=== PATIENT | male | born 1970 | race Two or more races ===

== ENCOUNTER 2016-09-13 08:29 | Inpatient (IN) | payer OTHER ==
[2016-09-13 10:43] VITALS: BMI 32.8
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
[2016-09-13] MEDS ORDERED: ACETAMINOPHEN 325 MG TABLET (FP) PO PRN (14:08)
[2016-09-13] MEDS ORDERED: MAG HYDROX/AL HYDROX/SIMETH 30 ML UNIT-DOSE CUP PO PRN (14:08)
[2016-09-13] MEDS ORDERED: NICOTINE POLACRILEX 4 MG GUM BUC PRN (14:08)
[2016-09-13] MEDS ORDERED: MENTHOL/PHENOL 1 EACH UD MM PRN (14:08)
[2016-09-13] MEDS ORDERED: MAGNESIUM HYDROX 2400MG/30ML ORAL SUSPENSION 30 ML CUP PO PRN (14:08)
[2016-09-13] MEDS ORDERED: guaiFENesin/D-METHORPHAN HB 10 ML UNIT-DOSE CUPS PO PRN (14:08)
[2016-09-13] MEDS ORDERED: hydrOXYzine PAMOATE 50 MG CAPSULE (FP) PO PRN (14:08)
[2016-09-13] MEDS ORDERED: MAGNESIUM CITRATE 300 ML BOTTLE PO PRN (14:08)
[2016-09-13] MEDS ORDERED: LOPERAMIDE HCL 2 MG CAPSULE PO PRN (14:08)
[2016-09-13] MEDS ORDERED: chlordiazePOXIDE HCL 25 MG CAPSULE PO PRN (14:08)
[2016-09-13] MEDS ORDERED: P-EPHED 60MG/TRIPROLIDI 2.5MG TABLET PO PRN (14:08)
[2016-09-13] MEDS ORDERED: ALBUTEROL SO4 6.7 GM HFA INHALER IH PRN (14:09)
[2016-09-13] MEDS ORDERED: chlordiazePOXIDE HCL 25 MG CAPSULE PO ONE (14:17)
[2016-09-13] MEDS ORDERED: AMMONIUM LACTATE 12% LOTION 225 GM BOTTLE TP PRN (14:31)
[2016-09-13] MEDS ORDERED: FUROSEMIDE 20 MG TABLET (FP) PO ONE (14:31)
[2016-09-13] MEDS: chlordiazePOXIDE HCL 25 MG CAPSULE PO SCH ×2 (17:21→22:43)
[2016-09-13] MEDS: IBUPROFEN 400 MG TABLET (FP) PO PRN (17:23)
[2016-09-13 19:33] LABS: URINE APPEARANCE CLEAR; URINE BILIRUBIN NEGATIVE (NEGATIVE); URINE BLOOD NEGATIVE (NEGATIVE); URINE COLOR YELLOW; URINE GLUCOSE (UA) NEGATIVE (NEGATIVE); URINE KETONE NEGATIVE (NEGATIVE); URINE LEUK ESTERASE NEGATIVE (NEGATIVE); URINE NITRITE NEGATIVE (NEGATIVE)
[2016-09-13 21:26] LABS: URINE PROTEIN 1+ (NEGATIVE)
[2016-09-13 21:38] LABS: URINE MUCUS MANY; URINE RBC 3 /hpf (0-3); URINE WBC 1 /hpf (3-5)
[2016-09-13] MEDS: THIAMINE HCL 100 MG TABLET (FP) PO SCH (22:43)
[2016-09-14] MEDS: chlordiazePOXIDE HCL 25 MG CAPSULE PO SCH ×4 (06:21→22:32)
[2016-09-14] MEDS ORDERED: METHADONE HCL 10 MG TABLET PO ONE (07:09)
[2016-09-14] MEDS ORDERED: METHADONE HCL 10 MG TABLET ONE (07:52)
[2016-09-14] MEDS ORDERED: METHADONE HCL 40 MG DISPERSABLE TABLET ONE (07:52)
[2016-09-14] MEDS: METHADONE 120 MG, METHADONE 10 MG PO SCH (07:53)
--- NOTE | 2016-09-14 09:05 | CONSULT ---
[facility] Psychiatric Consult - Data Date of interview: 09/14/16 Admission source: [facility] Identifying data: This is 45 years old male with no psychiatric hospitalization history intoxiocated with: Alcohol, Cannabis, Cocaine and Nicotine, Opioids Substance Abuse History: Urine Drug Screen Results: THC-Marijuana, CAROL ANN-Cocaine, MTD-Methadone. - Smoking Cessation. Smoking history: Current every day smoker. Have you smoked in the past 12 months: Yes. Aproximately how many cigarettes per day: 10. Hx Chewing Tobacco Use: No. Initiated information on smoking cessation: Yes. 'Breaking Loose' booklet given: 09/13/16. - Substance & Tx. History. Hx Alcohol Use: Yes. Hx Substance Use: No. Substance Use Type : Alcohol, Marijuana. Hx Substance Use Treatment: Yes (last detoc [facility] 04/2016). - Substances Abused. Alcohol-vodka. Route: Oral. Frequency: Daily. Amount used: 4 pts. vodka. Age of first use: 11. Date of Last Use: . Marijuana. Route: Smoking. Frequency: 1-2 times per week. Amount used: $25. Age of first use: 11. Date of Last Use: 09/12/16 Medical History: MMTP 120MG P[ER DAY, Asthma, Lipoma OF Left forearm, HTN, Spinal Stenosis Psychiatric History: Patient reports no psychiatric howspitalization history, no psychiatric medications taking prior to admission Physical/Sexual Abuse/Trauma History: Denies Additional Comment: Urine Drug Screen Results: THC-Marijuana, CAROL ANN-Cocaine, MTD- Methadone. Observation. Detox Unit Care Protocol Mental Status Exam - Mental Status Exam Alert and Oriented to: Person Cognitive Function: Fair Patient Appearance: Unkempt Mood: Apprehensive Affect: Mood Congruent Patient Behavior: Cooperative Speech Pattern: Appropriate Voice Loudness: Normal Thought Process: Goal Oriented Thought Disorder: Being Controlled Hallucinations: Denies Suicidal Ideation: Denies Homicidal Ideation: Denies Insight/Judgement: Fair Sleep: Difficulty falling asleep Muscle strength/Tone: Normal Gait/Station: Shuffling Additional Comments: Observation. Detox Unit Care Protocol Psychiatric Findings - Problem List ([place] 1, 2,3) (1) Alcohol dependence with uncomplicated withdrawal Status: Acute (2) Cannabis dependence, uncomplicated Status: Acute (3) Nicotine dependence Status: Chronic Qualifiers: Nicotine product type: cigarettes Substance use status: in withdrawal Qualified Code(s): F17.213 - Nicotine dependence, cigarettes, with withdrawal (4) Cocaine abuse Status: Chronic (5) Opioid dependence Status: Chronic - Initial Treatment Plan Initial Treatment Plan: Observation. Detox Unit Care Protocol
[2016-09-14] MEDS: amLODIPine BESYLATE 10 MG TABLET (FP) PO SCH (10:31)
[2016-09-14] MEDS: PRENATAL VITAMINS W/ FOLIC ACID TABLET (FP) PO SCH (10:31)
[2016-09-14] MEDS: NICOTINE 21 MG/24 HOURS TOPICAL PATCH TD SCH (10:32)
[2016-09-14 10:37] LABS: ALBUMIN 3.5 g/dl (3.4-5.0); ALK PHOS 103 U/L (45-117); ANION GAP 8 (8-16); BILIRUBIN,TOTAL 0.2 mg/dL (0.2-1.0); CALCIUM 9.1 mg/dL (8.5-10.1); CO2 31 mmol/L (21-32); CREATININE 0.6 mg/dL (0.7-1.3); GLUCOSE,RANDOM 75 mg/dL (74-106); SGOT/AST 50 U/L (15-37); SGPT/ALT 29 U/L (12-78); TOT PROT 7.5 g/dl (6.4-8.2)
[2016-09-14 10:48] LABS: MCH 33.1 pg (25.7-33.7); MCHC 33.7 g/dl (32.0-35.9); MEAN CELL VOLUME 98.2 fl (80-96); MEAN PLT VOLUME 8.3 fl (7.5-11.1); PLATELET COUNT 353 K/MM3 (134-434); RDW 13.8 % (11.9-15.9); WHITE BLOOD COUNT 7.8 K/mm3 (4.0-10.0)
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
--- NOTE | 2016-09-14 12:04 | EKG ---
Test Reason : Blood Pressure : / mmHG Vent. Rate : 061 BPM Atrial Rate : 061 BPM P-R Int : 166 ms QRS Dur : 102 ms QT Int : 496 ms P-R-T Axes : 030 083 096 degrees QTc Int : 499 ms NORMAL SINUS RHYTHM NONSPECIFIC T WAVE ABNORMALITY PROLONGED QT ABNORMAL ECG NO PREVIOUS ECGS AVAILABLE Confirmed by REG MCINTOSH MD ([id number]) on 09/14/2016 12:04:08 PM Referred By: Confirmed By:REG MCINTOSH MD
[2016-09-14] MEDS: IBUPROFEN 400 MG TABLET (FP) PO PRN (16:55)
[2016-09-14] MEDS: diphenhydrAMINE HCL 50 MG CAPSULE PO PRN (22:32)
[2016-09-14] MEDS: THIAMINE HCL 100 MG TABLET (FP) PO SCH (22:32)
[2016-09-15] MEDS ORDERED: METHADONE HCL 10 MG TABLET ONE (03:21)
[2016-09-15] MEDS ORDERED: METHADONE HCL 40 MG DISPERSABLE TABLET ONE (03:22)
[2016-09-15] MEDS ORDERED: METHADONE HCL 10 MG TABLET PO SCH (06:00)
[2016-09-15] MEDS: METHADONE 120 MG, METHADONE 10 MG PO SCH (06:09)
[2016-09-15] MEDS: chlordiazePOXIDE HCL 25 MG CAPSULE PO SCH ×2 (06:09→10:39)
[2016-09-15] MEDS: PRENATAL VITAMINS W/ FOLIC ACID TABLET (FP) PO SCH (10:39)
[2016-09-15] MEDS: amLODIPine BESYLATE 10 MG TABLET (FP) PO SCH (10:39)
[2016-09-15] MEDS: NICOTINE 21 MG/24 HOURS TOPICAL PATCH TD SCH (10:40)
[2016-09-15] MEDS: chlordiazePOXIDE 5 MG CAPSULE PO SCH ×2 (17:30→22:08)
[2016-09-15] MEDS: diphenhydrAMINE HCL 50 MG CAPSULE PO PRN (22:08)
[2016-09-15] MEDS: THIAMINE HCL 100 MG TABLET (FP) PO SCH (22:08)
[2016-09-16] MEDS ORDERED: METHADONE HCL 10 MG TABLET ONE (05:15)
[2016-09-16] MEDS ORDERED: METHADONE HCL 40 MG DISPERSABLE TABLET ONE (05:15)
[2016-09-16] MEDS: METHADONE 120 MG, METHADONE 10 MG PO SCH (05:31)
[2016-09-16] MEDS: chlordiazePOXIDE 5 MG CAPSULE PO SCH ×2 (05:31→10:31)
[2016-09-16] MEDS: amLODIPine BESYLATE 10 MG TABLET (FP) PO SCH (10:31)
[2016-09-16] MEDS: NICOTINE 21 MG/24 HOURS TOPICAL PATCH TD SCH (10:31)
[2016-09-16] MEDS: PRENATAL VITAMINS W/ FOLIC ACID TABLET (FP) PO SCH (10:31)
--- NOTE | 2016-09-16 15:12 | PN ---
[facility] CIWA - CIWA Score Nausea/Vomitin-Mild Nausea/No Vomiting Muscle Tremors: 3 Anxiety: 2 Agitation: 1-Slight > Activity Paroxysmal Sweats: No Perspiration Orientation: 2-Disoriented Date<2 days Tacttile Disturbances: 2-Mild Itch/Numbness/Burn Auditory Disturbances: 0-None Visual Disturbances: 2-Mild Sensitivity Headache: 0-None Present CIWA-Ar Total Score: 13 S Progress Note (SOAP) Subjective: Fatigue, Tremors, Interrupted sleep, Body Aches. Objective: PT. A & O X 2 (DISORIENTED ABOUT DAY / DATE). PT. OBSERVED AMBULATING ON UNIT. NO ACUTE DISTRESS. PT. DENIES CHEST PAIN. 09/16/16 15:09 Vital Signs Temperature 97.6 F 09/16/16 13:45 Pulse Rate 89 09/16/16 13:45 Respiratory Rate 18 09/16/16 13:45 Blood Pressure 137/86 09/16/16 13:45 O2 Sat by Pulse Oximetry (%) Laboratory Tests 09/13/16 09/14/16 09/14/16 18:00 06:00 06:00 WBC 7.8 RBC 3.82 L Hgb 12.6 Hct 37.5 MCV 98.2 H MCH 33.1 MCHC 33.7 RDW 13.8 Plt Count 353 D MPV 8.3 Sodium 138 Potassium 3.8 Chloride 99 Carbon Dioxide 31 Anion Gap 8 BUN 11 Creatinine 0.6 L D Creat Clearance w eGFR > 60 Random Glucose 75 D Calcium 9.1 Total Bilirubin 0.2 D AST 50 H D ALT 29 D Alkaline Phosphatase 103 D Total Protein 7.5 Albumin 3.5 Urine Color Yellow Urine Appearance Clear Urine pH 5.0 Ur Specific [place] >= 1.030 H Urine Protein 1+ H Urine Glucose (UA) Negative Urine Ketones Negative Urine Blood Negative Urine Nitrite Negative Urine Bilirubin Negative Urine Urobilinogen 2.0 Ur Leukocyte Esterase Negative Urine RBC 3 Urine WBC 1 Ur Epithelial Cells Rare Urine Mucus Many RPR Titer 09/14/16 06:00 WBC RBC Hgb Hct MCV MCH MCHC RDW Plt Count MPV Sodium Potassium Chloride Carbon Dioxide Anion Gap BUN Creatinine Creat Clearance w eGFR Random Glucose Calcium Total Bilirubin AST ALT Alkaline Phosphatase Total Protein Albumin Urine Color Urine Appearance Urine pH Ur Specific [place] Urine Protein Urine Glucose (UA) Urine Ketones Urine Blood Urine Nitrite Urine Bilirubin Urine Urobilinogen Ur Leukocyte Esterase Urine RBC Urine WBC Ur Epithelial Cells Urine Mucus RPR Titer Nonreactive LABS NOTED. 09/16/16 15:11 Assessment: 09/16/16 15:10 WITHDRAWAL SYMPTOMS. Plan: CONTINUE DETOX.
[2016-09-16] MEDS: chlordiazePOXIDE HCL 10 MG CAPSULE PO SCH ×2 (17:59→22:33)
[2016-09-16] MEDS: THIAMINE HCL 100 MG TABLET (FP) PO SCH (22:33)
[2016-09-16] MEDS: diphenhydrAMINE HCL 50 MG CAPSULE PO PRN (22:33)
[2016-09-17] MEDS ORDERED: METHADONE HCL 40 MG DISPERSABLE TABLET ONE (04:34)
[2016-09-17] MEDS ORDERED: METHADONE HCL 10 MG TABLET ONE (04:34)
[2016-09-17] MEDS: chlordiazePOXIDE HCL 10 MG CAPSULE PO SCH (05:49)
[2016-09-17] MEDS: METHADONE 120 MG, METHADONE 10 MG PO SCH (05:49)
[2016-09-17 09:30] VITALS: BP 122/82; PULSE 78; TEMP 97.7
[2016-09-17] MEDS: amLODIPine BESYLATE 10 MG TABLET (FP) PO SCH (10:16)
[2016-09-17] MEDS: PRENATAL VITAMINS W/ FOLIC ACID TABLET (FP) PO SCH (10:16)
[2016-09-17] MEDS: NICOTINE 21 MG/24 HOURS TOPICAL PATCH TD SCH (10:17)
--- NOTE | 2016-09-17 14:26 | DS ---
[facility] Detox Discharge Summary Admission Date: 09/13/16 Discharge Date: 09/17/16 - History Present History: Alcohol Dependence, Opioid Dependence, MMTP Pertinent Past History: HTN Asthma - Physical Exam Results Vital Signs: Vital Signs Temperature 97.7 F 09/17/16 09:30 Pulse Rate 78 09/17/16 09:30 Respiratory Rate 18 09/17/16 09:30 Blood Pressure 122/82 09/17/16 09:30 O2 Sat by Pulse Oximetry (%) Pertinent Admission Physical Exam Findings: Withdrawal symptoms Laboratory Tests 09/13/16 09/14/16 09/14/16 18:00 06:00 06:00 WBC 7.8 RBC 3.82 L Hgb 12.6 Hct 37.5 MCV 98.2 H MCH 33.1 MCHC 33.7 RDW 13.8 Plt Count 353 D MPV 8.3 Sodium 138 Potassium 3.8 Chloride 99 Carbon Dioxide 31 Anion Gap 8 BUN 11 Creatinine 0.6 L D Creat Clearance w eGFR > 60 Random Glucose 75 D Calcium 9.1 Total Bilirubin 0.2 D AST 50 H D ALT 29 D Alkaline Phosphatase 103 D Total Protein 7.5 Albumin 3.5 Urine Color Yellow Urine Appearance Clear Urine pH 5.0 Ur Specific [place] >= 1.030 H Urine Protein 1+ H Urine Glucose (UA) Negative Urine Ketones Negative Urine Blood Negative Urine Nitrite Negative Urine Bilirubin Negative Urine Urobilinogen 2.0 Ur Leukocyte Esterase Negative Urine RBC 3 Urine WBC 1 Ur Epithelial Cells Rare Urine Mucus Many RPR Titer 09/14/16 06:00 WBC RBC Hgb Hct MCV MCH MCHC RDW Plt Count MPV Sodium Potassium Chloride Carbon Dioxide Anion Gap BUN Creatinine Creat Clearance w eGFR Random Glucose Calcium Total Bilirubin AST ALT Alkaline Phosphatase Total Protein Albumin Urine Color Urine Appearance Urine pH Ur Specific [place] Urine Protein Urine Glucose (UA) Urine Ketones Urine Blood Urine Nitrite Urine Bilirubin Urine Urobilinogen Ur Leukocyte Esterase Urine RBC Urine WBC Ur Epithelial Cells Urine Mucus RPR Titer Nonreactive Labs noted - Treatment Hospital Course: Detox Protocol Followed, Detoxed Safely, Responded well, Discharged Condition Good - Medication Discharge Medications: Ambulatory Orders Albuterol Sulfate Inhaler - [Ventolin HFA Inhaler -] 2 inh PO Q4H PRN 03/04/15 Amlodipine Besylate [Norvasc -] 10 mg PO DAILY 03/04/15 Gabapentin [Neurontin -] 300 mg PO Q8H 08/04/15 - Diagnosis (1) Alcohol dependence with uncomplicated withdrawal Status: Acute (2) Opioid dependence Status: Chronic (3) HTN (hypertension) Status: Chronic Qualifiers: Hypertension type: essential hypertension (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
== END 2016-09-17 11:01 | disposition home or self-care (01) | DRG 773 ==
LOC: YASAS 08:29 → Y3N 13:43
PROVIDERS: ADMIT Internal Medicine; ATTEND Internal Medicine
PROC: HZ2ZZZZ Detoxification Services for Substance Abuse Treatment (ICD-10-PCS; principal; 2016-09-17)
DX: F11.20 Opioid dependence, uncomplicated (principal); F10.230 Alcohol dependence with withdrawal, uncomplicated; F14.20 Cocaine dependence, uncomplicated; F12.20 Cannabis dependence, uncomplicated; F17.213 Nicotine dependence, cigarettes, with withdrawal; J45.20 Mild intermittent asthma, uncomplicated
CPT/HCPCS: 36415; 80053; 81003; 81015; 85027; 86593; 93005; 93010

== ENCOUNTER 2017-07-09 11:03 | Inpatient (IN) | payer OTHER ==
[2017-07-09 11:20] VITALS: BMI 29.7
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
[2017-07-09] MEDS ORDERED: guaiFENesin/D-METHORPHAN HB 10 ML UNIT-DOSE CUPS PO PRN (13:40)
[2017-07-09] MEDS ORDERED: MAGNESIUM HYDROX 2400MG/30ML ORAL SUSPENSION 30 ML CUP PO PRN (13:40)
[2017-07-09] MEDS ORDERED: MENTHOL/PHENOL 1 EACH UD MM PRN (13:40)
[2017-07-09] MEDS ORDERED: MAGNESIUM CITRATE 300 ML BOTTLE PO PRN (13:40)
[2017-07-09] MEDS ORDERED: MAG HYDROX/AL HYDROX/SIMETH 30 ML UNIT-DOSE CUP PO PRN (13:40)
[2017-07-09] MEDS ORDERED: chlordiazePOXIDE HCL 25 MG CAPSULE PO PRN (13:40)
[2017-07-09] MEDS ORDERED: hydrOXYzine PAMOATE 50 MG CAPSULE (FP) PO PRN (13:40)
[2017-07-09] MEDS ORDERED: ACETAMINOPHEN 325 MG TABLET (FP) PO PRN (13:40)
[2017-07-09] MEDS ORDERED: P-EPHED 60MG/TRIPROLIDI 2.5MG TABLET PO PRN (13:40)
[2017-07-09] MEDS ORDERED: LOPERAMIDE HCL 2 MG CAPSULE PO PRN (13:40)
[2017-07-09] MEDS ORDERED: ALBUTEROL SO4 18 GM HFA INHALER IH PRN (14:10)
[2017-07-09] MEDS ORDERED: METHADONE HCL 10 MG TABLET PO SCH (14:50)
[2017-07-09] MEDS ORDERED: chlordiazePOXIDE HCL 25 MG CAPSULE PO ONE (14:50)
[2017-07-09] MEDS: amLODIPine BESYLATE 10 MG TABLET (FP) PO SCH (16:57)
[2017-07-09] MEDS: FUROSEMIDE 40 MG TABLET (FP) PO SCH (16:57)
[2017-07-09] MEDS: chlordiazePOXIDE HCL 25 MG CAPSULE PO SCH ×2 (17:04→22:27)
[2017-07-09] MEDS: NICOTINE 21 MG/24 HOURS TOPICAL PATCH TD SCH (17:04)
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
--- NOTE | 2017-07-09 17:59 | EKG ---
Test Reason : Blood Pressure : / mmHG Vent. Rate : 053 BPM Atrial Rate : 053 BPM P-R Int : 192 ms QRS Dur : 102 ms QT Int : 500 ms P-R-T Axes : 006 088 101 degrees QTc Int : 469 ms SINUS BRADYCARDIA T WAVE ABNORMALITY, CONSIDER ANTERIOR ISCHEMIA PROLONGED QT ABNORMAL ECG WHEN COMPARED WITH ECG OF 13-SEP-2016 14:20, NO SIGNIFICANT CHANGE WAS FOUND Confirmed by YE ELLIS MD ([id number]) on 07/09/2017 5:58:56 PM Referred By: Confirmed By:YE ELLIS MD
[2017-07-09 21:03] LABS: URINE APPEARANCE CLEAR; URINE BILIRUBIN NEGATIVE (<2.0 mg/dL); URINE COLOR LTYELLOW; URINE GLUCOSE (UA) NEGATIVE (NEGATIVE); URINE KETONE NEGATIVE (NEGATIVE); URINE LEUK ESTERASE NEGATIVE (NEGATIVE); URINE NITRITE NEGATIVE (NEGATIVE); URINE PROTEIN 1+ (NEGATIVE); URINE UROBILINOGEN NEGATIVE mg/dL (0.2-1.0)
[2017-07-09 21:30] LABS: URINE MUCUS RARE
[2017-07-09] MEDS ORDERED: MELATONIN 5 MG TABLETS PO PRN (22:00)
[2017-07-09] MEDS: THIAMINE HCL 100 MG TABLET (FP) PO SCH (22:25)
[2017-07-09] MEDS: AMMONIUM LACTATE 12% LOTION 225 GM BOTTLE TP SCH (22:25)
[2017-07-10] MEDS: chlordiazePOXIDE HCL 25 MG CAPSULE PO SCH ×4 (06:02→22:39)
[2017-07-10] MEDS: METHADONE HCL 40 MG DISPERSABLE TABLET PO SCH (06:03)
[2017-07-10 10:09] LABS: HEMATOCRIT 35.5 % (35.4-49); MCH 32.1 pg (25.7-33.7); MCHC 33.7 g/dl (32.0-35.9); MEAN CELL VOLUME 95.3 fl (80-96); MEAN PLT VOLUME 8.3 fl (7.5-11.1); PLATELET COUNT 262 K/MM3 (134-434); RBC 3.73 M/mm3 (4.00-5.60); RDW 15.8 % (11.9-15.9); WHITE BLOOD COUNT 5.3 K/mm3 (4.0-10.0)
[2017-07-10] MEDS: amLODIPine BESYLATE 10 MG TABLET (FP) PO SCH (10:45)
[2017-07-10] MEDS: AMMONIUM LACTATE 12% LOTION 225 GM BOTTLE TP SCH ×2 (10:45→22:40)
[2017-07-10] MEDS: PRENATAL VITAMINS W/ FOLIC ACID TABLET (FP) PO SCH (10:45)
[2017-07-10] MEDS: NICOTINE 21 MG/24 HOURS TOPICAL PATCH TD SCH (10:45)
[2017-07-10] MEDS: FUROSEMIDE 40 MG TABLET (FP) PO SCH (10:45)
[2017-07-10 10:53] LABS: CHLORIDE 104 mmol/L (98-107); POTASSIUM 3.6 mmol/L (3.5-5.1); SODIUM 142 mmol/L (136-145)
[2017-07-10 11:14] LABS: ALBUMIN 3.7 g/dl (3.4-5.0); ALK PHOS 88 U/L (45-117); ANION GAP 8 (8-16); BILIRUBIN,TOTAL 0.2 mg/dL (0.2-1.0); BLOOD UREA NITROGEN 12 mg/dL (7-18); CALCIUM 8.3 mg/dL (8.5-10.1); CO2 30 mmol/L (21-32); CREATININE 0.7 mg/dL (0.7-1.3); GLUCOSE,RANDOM 99 mg/dL (74-106); SGOT/AST 81 U/L (15-37); SGPT/ALT 35 U/L (12-78); TOT PROT 7.6 g/dl (6.4-8.2)
--- NOTE | 2017-07-10 12:10 | PN ---
S CIWA - CIWA Score Nausea/Vomitin-No Nausea/No Vomiting Muscle Tremors: 4-Moderate,w/Arms Extend Anxiety: 4-Mod. Anxious/Guarded Agitation: 3 Paroxysmal Sweats: 1-Minimal Palms Moist Orientation: 0-Oriented Tacttile Disturbances: 0-None Auditory Disturbances: 0-None Visual Disturbances: 0-None Headache: 0-None Present CIWA-Ar Total Score: 12 BHS Progress Note (SOAP) Subjective: ALERT O X 3. SAW PT THIS MORNING SITTING UP IN BED. REPORTS MEDS EFFECTIVE AND JUST RESTING. Objective: 07/10/17 12:09 Vital Signs 07/10/17 07/10/17 07/10/17 04:30 05:00 05:30 Temperature Pulse Rate 62 62 63 Respiratory 18 18 18 Rate Blood Pressure 07/10/17 07/10/17 07/10/17 06:00 06:22 06:30 Temperature 98.4 F Pulse Rate 63 65 65 Respiratory 18 18 18 Rate Blood Pressure 135/67 07/10/17 07/10/17 07/10/17 07:00 07:30 08:00 Temperature Pulse Rate 67 65 65 Respiratory 18 18 18 Rate Blood Pressure 07/10/17 07/10/17 07/10/17 08:30 09:00 09:30 Temperature 97.9 F Pulse Rate 97 H 61 67 Respiratory 18 18 Rate Blood Pressure 155/84 07/10/17 07/10/17 07/10/17 10:00 10:30 11:00 Temperature Pulse Rate 65 67 68 Respiratory 18 18 18 Rate Blood Pressure Laboratory Tests 07/09/17 07/10/17 07/10/17 20:00 06:00 06:00 WBC 5.3 D RBC 3.73 L Hgb 12.0 Hct 35.5 MCV 95.3 MCH 32.1 MCHC 33.7 RDW 15.8 D Plt Count 262 D MPV 8.3 Sodium 142 Potassium 3.6 Chloride 104 Carbon Dioxide 30 Anion Gap 8 BUN 12 Creatinine 0.7 Creat Clearance w eGFR > 60 Random Glucose 99 D Calcium 8.3 L Total Bilirubin 0.2 AST 81 H D ALT 35 D Alkaline Phosphatase 88 Total Protein 7.6 Albumin 3.7 Urine Color Ltyellow Urine Appearance Clear Urine pH 6.0 Ur Specific [place] 1.012 Urine Protein 1+ H Urine Glucose (UA) Negative Urine Ketones Negative Urine Blood 1+ H Urine Nitrite Negative Urine Bilirubin Negative Urine Urobilinogen Negative Ur Leukocyte Esterase Negative Urine WBC (Auto) <1 Urine RBC (Auto) <1 Urine Mucus Rare RPR Titer 07/10/17 06:00 WBC RBC Hgb Hct MCV MCH MCHC RDW Plt Count MPV Sodium Potassium Chloride Carbon Dioxide Anion Gap BUN Creatinine Creat Clearance w eGFR Random Glucose Calcium Total Bilirubin AST ALT Alkaline Phosphatase Total Protein Albumin Urine Color Urine Appearance Urine pH Ur Specific [place] Urine Protein Urine Glucose (UA) Urine Ketones Urine Blood Urine Nitrite Urine Bilirubin Urine Urobilinogen Ur Leukocyte Esterase Urine WBC (Auto) Urine RBC (Auto) Urine Mucus RPR Titer Nonreactive Assessment: 07/10/17 12:10 WITHDRAWAL SX Plan: CONTINUE DETOX
--- NOTE | 2017-07-10 16:22 | EKG ---
Test Reason : Blood Pressure : / mmHG Vent. Rate : 064 BPM Atrial Rate : 064 BPM P-R Int : 182 ms QRS Dur : 098 ms QT Int : 476 ms P-R-T Axes : 026 072 088 degrees QTc Int : 491 ms NORMAL SINUS RHYTHM MINIMAL VOLTAGE CRITERIA FOR LVH, MAY BE NORMAL VARIANT NONSPECIFIC T WAVE ABNORMALITY PROLONGED QT ABNORMAL ECG WHEN COMPARED WITH ECG OF 09-JUL-2017 17:08, NO SIGNIFICANT CHANGE WAS FOUND Confirmed by MD Boyd Daniel ([id number]) on 07/10/2017 4:21:51 PM Referred By: Confirmed By:Aleksey Boyd MD
[2017-07-10] MEDS: THIAMINE HCL 100 MG TABLET (FP) PO SCH (22:39)
[2017-07-10] MEDS: ZOLPIDEM TARTRATE 10 MG TABLET (PARK CARE ONLY) PO PRN (22:40)
[2017-07-11] MEDS: chlordiazePOXIDE HCL 25 MG CAPSULE PO SCH ×2 (05:59→10:12)
[2017-07-11] MEDS: METHADONE HCL 40 MG DISPERSABLE TABLET PO SCH (06:59)
[2017-07-11] MEDS: FUROSEMIDE 40 MG TABLET (FP) PO SCH (10:12)
[2017-07-11] MEDS: amLODIPine BESYLATE 10 MG TABLET (FP) PO SCH (10:12)
[2017-07-11] MEDS: PRENATAL VITAMINS W/ FOLIC ACID TABLET (FP) PO SCH (10:12)
[2017-07-11] MEDS: NICOTINE 21 MG/24 HOURS TOPICAL PATCH TD SCH (10:12)
[2017-07-11] MEDS: AMMONIUM LACTATE 12% LOTION 225 GM BOTTLE TP SCH ×2 (11:12→22:21)
--- NOTE | 2017-07-11 12:22 | PN ---
S CIWA - CIWA Score Nausea/Vomitin-No Nausea/No Vomiting Muscle Tremors: 4-Moderate,w/Arms Extend Anxiety: 4-Mod. Anxious/Guarded Agitation: 3 Paroxysmal Sweats: 1-Minimal Palms Moist Orientation: 0-Oriented Tacttile Disturbances: 0-None Auditory Disturbances: 0-None Visual Disturbances: 0-None Headache: 0-None Present CIWA-Ar Total Score: 12 BHS Progress Note (SOAP) Subjective: SLIGHT ANXIETY, SWEATS,FATIGUE BUT DETOXING PER PROTOCOL. NAD. Objective: 07/11/17 12:20 Vital Signs 07/11/17 07/11/17 06:48 09:22 Temperature 98.9 F 98.3 F Pulse Rate 55 L 81 Respiratory 18 20 Rate Blood Pressure 124/67 143/94 Laboratory Tests 07/09/17 07/09/17 07/10/17 13:54 20:00 06:00 WBC 5.3 D RBC 3.73 L Hgb 12.0 Hct 35.5 MCV 95.3 MCH 32.1 MCHC 33.7 RDW 15.8 D Plt Count 262 D MPV 8.3 Sodium Potassium Chloride Carbon Dioxide Anion Gap BUN Creatinine Creat Clearance w eGFR POC Glucometer 106 Random Glucose Calcium Total Bilirubin AST ALT Alkaline Phosphatase Total Protein Albumin Urine Color Ltyellow Urine Appearance Clear Urine pH 6.0 Ur Specific [place] 1.012 Urine Protein 1+ H Urine Glucose (UA) Negative Urine Ketones Negative Urine Blood 1+ H Urine Nitrite Negative Urine Bilirubin Negative Urine Urobilinogen Negative Ur Leukocyte Esterase Negative Urine WBC (Auto) <1 Urine RBC (Auto) <1 Urine Mucus Rare RPR Titer 07/10/17 07/10/17 07/10/17 06:00 06:00 06:04 WBC RBC Hgb Hct MCV MCH MCHC RDW Plt Count MPV Sodium 142 Potassium 3.6 Chloride 104 Carbon Dioxide 30 Anion Gap 8 BUN 12 Creatinine 0.7 Creat Clearance w eGFR > 60 POC Glucometer 85 Random Glucose 99 D Calcium 8.3 L Total Bilirubin 0.2 AST 81 H D ALT 35 D Alkaline Phosphatase 88 Total Protein 7.6 Albumin 3.7 Urine Color Urine Appearance Urine pH Ur Specific [place] Urine Protein Urine Glucose (UA) Urine Ketones Urine Blood Urine Nitrite Urine Bilirubin Urine Urobilinogen Ur Leukocyte Esterase Urine WBC (Auto) Urine RBC (Auto) Urine Mucus RPR Titer Nonreactive 07/11/17 05:50 WBC RBC Hgb Hct MCV MCH MCHC RDW Plt Count MPV Sodium Potassium Chloride Carbon Dioxide Anion Gap BUN Creatinine Creat Clearance w eGFR POC Glucometer 114 Random Glucose Calcium Total Bilirubin AST ALT Alkaline Phosphatase Total Protein Albumin Urine Color Urine Appearance Urine pH Ur Specific [place] Urine Protein Urine Glucose (UA) Urine Ketones Urine Blood Urine Nitrite Urine Bilirubin Urine Urobilinogen Ur Leukocyte Esterase Urine WBC (Auto) Urine RBC (Auto) Urine Mucus RPR Titer Assessment: 07/11/17 12:21 WITHDRAWAL SX Plan: CONTINUE DETOX INCREASE PO FLUIDS.
[2017-07-11] MEDS: chlordiazePOXIDE 5 MG CAPSULE PO SCH ×2 (17:52→22:21)
[2017-07-11] MEDS: THIAMINE HCL 100 MG TABLET (FP) PO SCH (22:21)
[2017-07-11] MEDS: ZOLPIDEM TARTRATE 10 MG TABLET (PARK CARE ONLY) PO PRN (22:21)
[2017-07-12] MEDS: IBUPROFEN 400 MG TABLET (FP) PO PRN (04:18)
[2017-07-12] MEDS: chlordiazePOXIDE 5 MG CAPSULE PO SCH ×2 (05:33→10:34)
[2017-07-12] MEDS: METHADONE HCL 40 MG DISPERSABLE TABLET PO SCH (05:33)
[2017-07-12] MEDS: PRENATAL VITAMINS W/ FOLIC ACID TABLET (FP) PO SCH (10:34)
[2017-07-12] MEDS: NICOTINE 21 MG/24 HOURS TOPICAL PATCH TD SCH (10:34)
[2017-07-12] MEDS: AMMONIUM LACTATE 12% LOTION 225 GM BOTTLE TP SCH ×2 (10:34→22:03)
[2017-07-12] MEDS: amLODIPine BESYLATE 10 MG TABLET (FP) PO SCH (10:34)
--- NOTE | 2017-07-12 16:03 | PN ---
BHS Progress Note (SOAP) Subjective: Tremors, Body Aches, Fatigue, Sweating, Interrupted Sleep. Objective: PATIENT A & O X 3, OBSERVED AMBULATING ON UNIT. NO ACUTE DISTRESS. 07/12/17 16:01 Vital Signs Temperature 97 F L 07/12/17 13:34 Pulse Rate 84 07/12/17 13:34 Respiratory Rate 18 07/12/17 13:34 Blood Pressure 125/82 07/12/17 13:34 O2 Sat by Pulse Oximetry (%) Laboratory Tests 07/09/17 07/09/17 07/10/17 13:54 20:00 06:00 WBC 5.3 D RBC 3.73 L Hgb 12.0 Hct 35.5 MCV 95.3 MCH 32.1 MCHC 33.7 RDW 15.8 D Plt Count 262 D MPV 8.3 Sodium Potassium Chloride Carbon Dioxide Anion Gap BUN Creatinine Creat Clearance w eGFR POC Glucometer 106 Random Glucose Calcium Total Bilirubin AST ALT Alkaline Phosphatase Total Protein Albumin Urine Color Ltyellow Urine Appearance Clear Urine pH 6.0 Ur Specific [place] 1.012 Urine Protein 1+ H Urine Glucose (UA) Negative Urine Ketones Negative Urine Blood 1+ H Urine Nitrite Negative Urine Bilirubin Negative Urine Urobilinogen Negative Ur Leukocyte Esterase Negative Urine WBC (Auto) <1 Urine RBC (Auto) <1 Urine Mucus Rare RPR Titer 07/10/17 07/10/17 07/10/17 06:00 06:00 06:04 WBC RBC Hgb Hct MCV MCH MCHC RDW Plt Count MPV Sodium 142 Potassium 3.6 Chloride 104 Carbon Dioxide 30 Anion Gap 8 BUN 12 Creatinine 0.7 Creat Clearance w eGFR > 60 POC Glucometer 85 Random Glucose 99 D Calcium 8.3 L Total Bilirubin 0.2 AST 81 H D ALT 35 D Alkaline Phosphatase 88 Total Protein 7.6 Albumin 3.7 Urine Color Urine Appearance Urine pH Ur Specific [place] Urine Protein Urine Glucose (UA) Urine Ketones Urine Blood Urine Nitrite Urine Bilirubin Urine Urobilinogen Ur Leukocyte Esterase Urine WBC (Auto) Urine RBC (Auto) Urine Mucus RPR Titer Nonreactive 07/11/17 07/12/17 05:50 05:32 WBC RBC Hgb Hct MCV MCH MCHC RDW Plt Count MPV Sodium Potassium Chloride Carbon Dioxide Anion Gap BUN Creatinine Creat Clearance w eGFR POC Glucometer 114 120 Random Glucose Calcium Total Bilirubin AST ALT Alkaline Phosphatase Total Protein Albumin Urine Color Urine Appearance Urine pH Ur Specific [place] Urine Protein Urine Glucose (UA) Urine Ketones Urine Blood Urine Nitrite Urine Bilirubin Urine Urobilinogen Ur Leukocyte Esterase Urine WBC (Auto) Urine RBC (Auto) Urine Mucus RPR Titer LABS NOTED. Assessment: 07/12/17 16:02 WITHDRAWAL SYMPTOMS. Plan: CONTINUE DETOX. PATIENT SCHEDULED FOR D/C TOMORROW.
[2017-07-12] MEDS: chlordiazePOXIDE HCL 10 MG CAPSULE PO SCH ×2 (17:17→22:03)
[2017-07-12] MEDS: ZOLPIDEM TARTRATE 10 MG TABLET (PARK CARE ONLY) PO PRN (21:45)
[2017-07-12] MEDS: THIAMINE HCL 100 MG TABLET (FP) PO SCH (21:45)
[2017-07-13] MEDS: METHADONE HCL 40 MG DISPERSABLE TABLET PO SCH (05:55)
[2017-07-13] MEDS: chlordiazePOXIDE HCL 10 MG CAPSULE PO SCH ×2 (05:55→10:13)
[2017-07-13] MEDS: IBUPROFEN 400 MG TABLET (FP) PO PRN (05:59)
[2017-07-13] MEDS: NICOTINE 21 MG/24 HOURS TOPICAL PATCH TD SCH (10:10)
[2017-07-13] MEDS: PRENATAL VITAMINS W/ FOLIC ACID TABLET (FP) PO SCH (10:11)
[2017-07-13] MEDS: amLODIPine BESYLATE 10 MG TABLET (FP) PO SCH (10:11)
[2017-07-13] MEDS: AMMONIUM LACTATE 12% LOTION 225 GM BOTTLE TP SCH ×2 (10:13→23:06)
--- NOTE | 2017-07-13 14:01 | PN ---
BHS Progress Note (SOAP) Subjective: Interrupted Sleep, Anxious, Sweating, Tremors. Objective: PATIENT A & O X 3, OBSERVED AMBULATING ON UNIT. NO ACUTE DISTRESS. 07/13/17 13:55 Vital Signs Temperature 96.8 F L 07/13/17 09:40 Pulse Rate 81 07/13/17 09:40 Respiratory Rate 20 07/13/17 09:40 Blood Pressure 108/71 07/13/17 09:40 O2 Sat by Pulse Oximetry (%) Laboratory Tests 07/09/17 07/09/17 07/10/17 13:54 20:00 06:00 WBC 5.3 D RBC 3.73 L Hgb 12.0 Hct 35.5 MCV 95.3 MCH 32.1 MCHC 33.7 RDW 15.8 D Plt Count 262 D MPV 8.3 Sodium Potassium Chloride Carbon Dioxide Anion Gap BUN Creatinine Creat Clearance w eGFR POC Glucometer 106 Random Glucose Calcium Total Bilirubin AST ALT Alkaline Phosphatase Total Protein Albumin Urine Color Ltyellow Urine Appearance Clear Urine pH 6.0 Ur Specific [place] 1.012 Urine Protein 1+ H Urine Glucose (UA) Negative Urine Ketones Negative Urine Blood 1+ H Urine Nitrite Negative Urine Bilirubin Negative Urine Urobilinogen Negative Ur Leukocyte Esterase Negative Urine WBC (Auto) <1 Urine RBC (Auto) <1 Urine Mucus Rare RPR Titer 07/10/17 07/10/17 07/10/17 06:00 06:00 06:04 WBC RBC Hgb Hct MCV MCH MCHC RDW Plt Count MPV Sodium 142 Potassium 3.6 Chloride 104 Carbon Dioxide 30 Anion Gap 8 BUN 12 Creatinine 0.7 Creat Clearance w eGFR > 60 POC Glucometer 85 Random Glucose 99 D Calcium 8.3 L Total Bilirubin 0.2 AST 81 H D ALT 35 D Alkaline Phosphatase 88 Total Protein 7.6 Albumin 3.7 Urine Color Urine Appearance Urine pH Ur Specific [place] Urine Protein Urine Glucose (UA) Urine Ketones Urine Blood Urine Nitrite Urine Bilirubin Urine Urobilinogen Ur Leukocyte Esterase Urine WBC (Auto) Urine RBC (Auto) Urine Mucus RPR Titer Nonreactive 07/11/17 07/12/17 07/13/17 05:50 05:32 05:57 WBC RBC Hgb Hct MCV MCH MCHC RDW Plt Count MPV Sodium Potassium Chloride Carbon Dioxide Anion Gap BUN Creatinine Creat Clearance w eGFR POC Glucometer 114 120 98 Random Glucose Calcium Total Bilirubin AST ALT Alkaline Phosphatase Total Protein Albumin Urine Color Urine Appearance Urine pH Ur Specific [place] Urine Protein Urine Glucose (UA) Urine Ketones Urine Blood Urine Nitrite Urine Bilirubin Urine Urobilinogen Ur Leukocyte Esterase Urine WBC (Auto) Urine RBC (Auto) Urine Mucus RPR Titer LABS NOTED. Assessment: 07/13/17 13:57 WITHDRAWAL SYMPTOMS. Plan: CONTINUE DETOX. INCREASE DAILY PO FLUID INTAKE. DUE TO PRESENCE OF LINGERING WITHDRAWAL SYMPTOMS, PATIENT IS PERMITTE DTO REMAIN ON DETOX UNIT UNTIL TOMORROW, 07/14/2017, AT WHICH TIME HE WILL BE DISCHARGED SO THAT HE MAY BE TAK[facility] TO [facility] ([place], [place] FOR AFTERCARE.
[2017-07-13] MEDS: THIAMINE HCL 100 MG TABLET (FP) PO SCH (22:26)
[2017-07-14] MEDS: METHADONE HCL 40 MG DISPERSABLE TABLET PO SCH (05:49)
[2017-07-14 09:18] VITALS: BP 132/78; PULSE 84; TEMP 97.7
[2017-07-14] MEDS: NICOTINE 21 MG/24 HOURS TOPICAL PATCH TD SCH (10:10)
[2017-07-14] MEDS: PRENATAL VITAMINS W/ FOLIC ACID TABLET (FP) PO SCH (10:10)
[2017-07-14] MEDS: AMMONIUM LACTATE 12% LOTION 225 GM BOTTLE TP SCH (10:10)
[2017-07-14] MEDS: amLODIPine BESYLATE 10 MG TABLET (FP) PO SCH (10:10)
--- NOTE | 2017-07-14 17:03 | PN ---
S Progress Note (SOAP) Subjective: Patient denies current Detox symptoms and reports that he feels well overall. Objective: PATIENT A & O X 3, OBSERVED AMBULATING ON UNIT. NO ACUTE DISTRESS. 07/14/17 17:02 Vital Signs Temperature 97.7 F 07/14/17 09:17 Pulse Rate 84 07/14/17 09:17 Respiratory Rate 20 07/14/17 09:17 Blood Pressure 132/78 07/14/17 09:17 O2 Sat by Pulse Oximetry (%) Laboratory Tests 07/09/17 07/09/17 07/10/17 13:54 20:00 06:00 WBC 5.3 D RBC 3.73 L Hgb 12.0 Hct 35.5 MCV 95.3 MCH 32.1 MCHC 33.7 RDW 15.8 D Plt Count 262 D MPV 8.3 Sodium Potassium Chloride Carbon Dioxide Anion Gap BUN Creatinine Creat Clearance w eGFR POC Glucometer 106 Random Glucose Calcium Total Bilirubin AST ALT Alkaline Phosphatase Total Protein Albumin Urine Color Ltyellow Urine Appearance Clear Urine pH 6.0 Ur Specific [place] 1.012 Urine Protein 1+ H Urine Glucose (UA) Negative Urine Ketones Negative Urine Blood 1+ H Urine Nitrite Negative Urine Bilirubin Negative Urine Urobilinogen Negative Ur Leukocyte Esterase Negative Urine WBC (Auto) <1 Urine RBC (Auto) <1 Urine Mucus Rare RPR Titer 07/10/17 07/10/17 07/10/17 06:00 06:00 06:04 WBC RBC Hgb Hct MCV MCH MCHC RDW Plt Count MPV Sodium 142 Potassium 3.6 Chloride 104 Carbon Dioxide 30 Anion Gap 8 BUN 12 Creatinine 0.7 Creat Clearance w eGFR > 60 POC Glucometer 85 Random Glucose 99 D Calcium 8.3 L Total Bilirubin 0.2 AST 81 H D ALT 35 D Alkaline Phosphatase 88 Total Protein 7.6 Albumin 3.7 Urine Color Urine Appearance Urine pH Ur Specific [place] Urine Protein Urine Glucose (UA) Urine Ketones Urine Blood Urine Nitrite Urine Bilirubin Urine Urobilinogen Ur Leukocyte Esterase Urine WBC (Auto) Urine RBC (Auto) Urine Mucus RPR Titer Nonreactive 07/11/17 07/12/17 07/13/17 05:50 05:32 05:57 WBC RBC Hgb Hct MCV MCH MCHC RDW Plt Count MPV Sodium Potassium Chloride Carbon Dioxide Anion Gap BUN Creatinine Creat Clearance w eGFR POC Glucometer 114 120 98 Random Glucose Calcium Total Bilirubin AST ALT Alkaline Phosphatase Total Protein Albumin Urine Color Urine Appearance Urine pH Ur Specific [place] Urine Protein Urine Glucose (UA) Urine Ketones Urine Blood Urine Nitrite Urine Bilirubin Urine Urobilinogen Ur Leukocyte Esterase Urine WBC (Auto) Urine RBC (Auto) Urine Mucus RPR Titer 07/14/17 05:52 WBC RBC Hgb Hct MCV MCH MCHC RDW Plt Count MPV Sodium Potassium Chloride Carbon Dioxide Anion Gap BUN Creatinine Creat Clearance w eGFR POC Glucometer 112 Random Glucose Calcium Total Bilirubin AST ALT Alkaline Phosphatase Total Protein Albumin Urine Color Urine Appearance Urine pH Ur Specific [place] Urine Protein Urine Glucose (UA) Urine Ketones Urine Blood Urine Nitrite Urine Bilirubin Urine Urobilinogen Ur Leukocyte Esterase Urine WBC (Auto) Urine RBC (Auto) Urine Mucus RPR Titer LABS NOTED. Assessment: 07/14/17 17:02 COMPLETION OF DETOX REGIMEN. Plan: PATIENT SCHEDULED FOR DISCHARGE FROM DETOX UNIT TODAY.
--- NOTE | 2017-07-14 17:07 | DS ---
[facility] Detox Discharge Summary Admission Date: 07/09/17 Discharge Date: 07/14/17 - History Present History: Alcohol Dependence, Cannabis Dependence, Opioid Dependence, MMTP Additional Comments: PATIENT GOING TO [facility] ([place], [place] FOR AFTERCARE. PATIENT WAS DISCHARGED FROM DETOX UNIT IN STABLE MEDICAL CONDITION. Pertinent Past History: Asthma, HTN, Type II DM, Insomnia, History of Contact Dermatitis, History of Fracture of Left Elbow, History of Edema of Bilateral Legs, Nicotine Dependence , MMTP. - Physical Exam Results Vital Signs: Vital Signs Temperature 97.7 F 07/14/17 09:17 Pulse Rate 84 07/14/17 09:17 Respiratory Rate 20 07/14/17 09:17 Blood Pressure 132/78 07/14/17 09:17 O2 Sat by Pulse Oximetry (%) Pertinent Admission Physical Exam Findings: WITHDRAWAL SYMPTOMS. Laboratory Tests 07/09/17 07/09/17 07/10/17 13:54 20:00 06:00 WBC 5.3 D RBC 3.73 L Hgb 12.0 Hct 35.5 MCV 95.3 MCH 32.1 MCHC 33.7 RDW 15.8 D Plt Count 262 D MPV 8.3 Sodium Potassium Chloride Carbon Dioxide Anion Gap BUN Creatinine Creat Clearance w eGFR POC Glucometer 106 Random Glucose Calcium Total Bilirubin AST ALT Alkaline Phosphatase Total Protein Albumin Urine Color Ltyellow Urine Appearance Clear Urine pH 6.0 Ur Specific [place] 1.012 Urine Protein 1+ H Urine Glucose (UA) Negative Urine Ketones Negative Urine Blood 1+ H Urine Nitrite Negative Urine Bilirubin Negative Urine Urobilinogen Negative Ur Leukocyte Esterase Negative Urine WBC (Auto) <1 Urine RBC (Auto) <1 Urine Mucus Rare RPR Titer 07/10/17 07/10/17 07/10/17 06:00 06:00 06:04 WBC RBC Hgb Hct MCV MCH MCHC RDW Plt Count MPV Sodium 142 Potassium 3.6 Chloride 104 Carbon Dioxide 30 Anion Gap 8 BUN 12 Creatinine 0.7 Creat Clearance w eGFR > 60 POC Glucometer 85 Random Glucose 99 D Calcium 8.3 L Total Bilirubin 0.2 AST 81 H D ALT 35 D Alkaline Phosphatase 88 Total Protein 7.6 Albumin 3.7 Urine Color Urine Appearance Urine pH Ur Specific [place] Urine Protein Urine Glucose (UA) Urine Ketones Urine Blood Urine Nitrite Urine Bilirubin Urine Urobilinogen Ur Leukocyte Esterase Urine WBC (Auto) Urine RBC (Auto) Urine Mucus RPR Titer Nonreactive 07/11/17 07/12/17 07/13/17 05:50 05:32 05:57 WBC RBC Hgb Hct MCV MCH MCHC RDW Plt Count MPV Sodium Potassium Chloride Carbon Dioxide Anion Gap BUN Creatinine Creat Clearance w eGFR POC Glucometer 114 120 98 Random Glucose Calcium Total Bilirubin AST ALT Alkaline Phosphatase Total Protein Albumin Urine Color Urine Appearance Urine pH Ur Specific [place] Urine Protein Urine Glucose (UA) Urine Ketones Urine Blood Urine Nitrite Urine Bilirubin Urine Urobilinogen Ur Leukocyte Esterase Urine WBC (Auto) Urine RBC (Auto) Urine Mucus RPR Titer 07/14/17 05:52 WBC RBC Hgb Hct MCV MCH MCHC RDW Plt Count MPV Sodium Potassium Chloride Carbon Dioxide Anion Gap BUN Creatinine Creat Clearance w eGFR POC Glucometer 112 Random Glucose Calcium Total Bilirubin AST ALT Alkaline Phosphatase Total Protein Albumin Urine Color Urine Appearance Urine pH Ur Specific [place] Urine Protein Urine Glucose (UA) Urine Ketones Urine Blood Urine Nitrite Urine Bilirubin Urine Urobilinogen Ur Leukocyte Esterase Urine WBC (Auto) Urine RBC (Auto) Urine Mucus RPR Titer LABS NOTED. - Treatment Hospital Course: Detox Protocol Followed, Detoxed Safely, Responded well, Discharged Condition Good, Rehab Referral Accepted Patient has Accepted a Rehab Referral to: [facility] ([place], [place] - Medication Discharge Medications: Ambulatory Orders Albuterol Sulfate Inhaler - [Ventolin HFA Inhaler -] 2 inh PO Q4H PRN #1 inhaler 07/13/17 Amlodipine Besylate [Norvasc -] 10 mg PO DAILY #30 tablet 07/13/17 Gabapentin [Neurontin -] 300 mg PO TID #90 capsule 07/13/17 - Diagnosis (1) Alcohol dependence with intoxication Status: Acute Qualifiers: Complication of substance-induced condition: uncomplicated Qualified Code(s ): F10.220 - Alcohol dependence with intoxication, uncomplicated (2) Alcohol dependence with uncomplicated withdrawal Status: Acute (3) Cannabis dependence, uncomplicated Status: Acute (4) Contact dermatitis Status: Acute Qualifiers: Contact dermatitis type: unspecified Contact dermatitis trigger: unspecified trigger Qualified Code(s): L25.9 - Unspecified contact dermatitis , unspecified cause (5) Edema of both legs Status: Acute (6) Fracture of left elbow Status: Acute Qualifiers: Encounter type: subsequent encounter Fracture type: closed Fracture healing: with routine healing Qualified Code(s): S42.402D - Unspecified fracture of lower end of left humerus, subsequent encounter for fracture with routine healing (7) Opioid dependence on agonist therapy Status: Chronic (8) HTN (hypertension) Status: Chronic Qualifiers: Hypertension type: essential hypertension (9) Nicotine dependence Status: Acute Qualifiers: Nicotine product type: cigarettes Substance use status: in withdrawal Qualified Code(s): F17.213 - Nicotine dependence, cigarettes, with withdrawal (10) Asthma Status: Chronic Qualifiers: Asthma severity: mild Asthma persistence: unspecified Asthma complication type: uncomplicated Qualified Code(s): J45.909 - Unspecified asthma, uncomplicated (11) DM2 (diabetes mellitus, type 2) Status: Suspected Qualifiers: Diabetes mellitus detention insulin use: without detention use Diabetes mellitus complication status: without complication Qualified Code(s): E11.9 - Type 2 diabetes mellitus without complications (12) Insomnia Status: Acute Qualifiers: Insomnia type: unspecified Qualified Code(s): G47.00 - Insomnia, unspecified (13) Substance induced mood disorder Status: Acute (14) Methadone maintenance therapy patient Status: Chronic (15) Non compliance w medication regimen Status: Chronic - AMA Did Patient Leave Against Medical Advice: No
== END 2017-07-14 09:50 | disposition home or self-care (01) | DRG 773 ==
LOC: YASAS 11:03 → Y3N 14:41
PROVIDERS: ADMIT Internal Medicine; ATTEND Internal Medicine
PROC: HZ2ZZZZ Detoxification Services for Substance Abuse Treatment (ICD-10-PCS; principal; 2017-07-09)
DX: F11.20 Opioid dependence, uncomplicated (principal); F10.20 Alcohol dependence, uncomplicated; F10.230 Alcohol dependence with withdrawal, uncomplicated; F12.20 Cannabis dependence, uncomplicated; F17.213 Nicotine dependence, cigarettes, with withdrawal; G47.00 Insomnia, unspecified; I10 Essential (primary) hypertension; J45.909 Unspecified asthma, uncomplicated; R60.0 Localized edema; L25.9 Unspecified contact dermatitis, unspecified cause; S42.402D Unspecified fracture of lower end of left humerus, subsequent encounter for fracture with routine healing; Z91.14 Patient's other noncompliance with medication regimen
CPT/HCPCS: 36415; 80053; 81003; 81015; 82962; 85027; 86593; 93005; 93010